=== PATIENT | male | born 1935 | race Caucasian/White ===

== ENCOUNTER 2016-09-17 10:36 | Inpatient (IN) | payer MEDICARE, BC ==
--- NOTE | 2016-09-17 11:04 | ED ---
SOB HPI - General Chief Complaint: Shortness of Breath Stated Complaint: Altered Mental Status Time Seen by Provider: 09/17/16 10:36 Source: EMS, RN notes reviewed, old records reviewed Mode of arrival: EMS Limitations: altered mental status - History of Present Illness Initial Comments: This is a 80-year-old male with a history of multiple medical problems including COPD who is brought in for evaluation for hypoxemia and altered mental status. The patient was brought in by EMS apparently had a pulse ox of 58% yesterday 80% this morning per EMS she did improve after a updraft treatment. He has diminished mental status. 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 No nausea no vomiting no diarrhea reported. No reports of fevers chills or sweats he patient is unable to render any information per EMS his CODE STATUS is supportive care only family did request evaluation in the emergency department MD Complaint: shortness of breath - Related Data Home Medications Medication Instructions Recorded Confirmed Atorvastatin [Lipitor] 40 mg PO HS 09/13/14 09/17/16 Insulin NPH Hum/Reg Insulin Hm 25 unit SQ AC-BRKFST 09/13/14 09/17/16 [NovoLIN 70-30 100 UNIT/ML VIAL] Budesonide [Pulmicort] 0.5 mg INHALATION RT-BID 07/28/15 09/17/16 Vitamin B Complex 1 cap PO DAILY 07/28/15 09/17/16 amLODIPine BESYLATE [Norvasc] 5 mg PO DAILY 07/28/15 09/17/16 Albuterol Inhaler [Ventolin Hfa 2 puff INHALATION RT-Q6H PRN 09/01/16 09/17/16 Inhaler] Aspirin EC [Ecotrin Low Dose] 81 mg PO DAILY 09/01/16 09/17/16 Omeprazole [PriLOSEC] 40 mg PO DAILY 09/01/16 09/17/16 Metoprolol Succinate [Toprol XL] 50 mg PO DAILY 09/02/16 09/17/16 INSULIN LISPRO (humaLOG) [humaLOG 2 unit SQ ACHS 09/17/16 09/17/16 (formulary)] Prostat Awc 1 tab PO BID 09/17/16 09/17/16 Tuberculin Ppd (Skin Test) 0.1 ml SQ Q7D 09/17/16 09/17/16 [Tubersol] guaiFENesin [Mucinex] 600 mg PO BID 09/17/16 09/17/16 Previous Rx's Medication Instructions Recorded Insulin NPH Hum/Reg Insulin Hm 10 units SQ HS #0 09/07/16 [NovoLIN 70-30 100 UNIT/ML VIAL] Ipratropium-Albuterol Nebulize 3 ml INHALATION RT-Q4H PRN #0 09/07/16 [Duoneb 0.5 mg-3 mg/3 ml Soln] ampul.neb Linezolid 600 mg PO BID #28 tablet 09/07/16 predniSONE 40 mg PO DAILY 5 Days 09/07/16 Allergies Allergy/AdvReac Type Severity Reaction Status Date / Time No Known Allergies Allergy Verified 09/17/16 12:07 Review of Systems ROS Statement: Those systems with pertinent positive or pertinent negative responses have been documented in the HPI. ROS Other: All systems not noted in ROS Statement are negative. Limitations: ROS unobtainable due to patients medical condition Past Medical History Past Medical History: Coronary Artery Disease (CAD), Heart Failure, COPD, Diabetes Mellitus, GERD/Reflux, Hyperlipidemia, Hypertension, Pneumonia, Sleep Apnea/CPAP/BIPAP Additional Past Medical History / Comment(s): MACULAR DEGENERATION rt eye legally blind , ARTHRITIS HANDS, DOES'NT USE THE CPAP ANYMORE, c-diff 12-02-14 History of Any Multi-Drug Resistant Organisms: ESBL, MRSA Date of last positivie culture/infection: 09/02/16 MDRO Source:: RT KNEE Past Surgical History: Appendectomy, Orthopedic Surgery, Tonsillectomy Additional Past Surgical History / Comment(s): 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 has 1 indoor cat. pt is able to care for self.has a prothesis(rt leg) and a w/ c.pt's grand daughter lives close by and checks on him often. Smoking Status: Former smoker Past Alcohol Use History: None Reported Additional Past Alcohol Use History / Comment(s): STARTED SMOKING AT AGE 18 QUIT IN 1985 HAD SMOKED 2 PPD Past Drug Use History: None Reported - Past Family History Father Family Medical History: Myocardial Infarction ([place]) Additional Family Medical History / Comment(s): WAS ALCOHOLIC AT AGE 54 FROM CEREBRAL HEMMORAGE Mother Family Medical History: Cancer Additional Family Medical History / Comment(s): AT AGE 77 FROM BLADDER CANCER. General Exam - General Exam Comments Initial Comments: Is a well-developed well-nourished obtunded male Limitations: altered mental status General appearance: obtunded Eye exam: Present: PERRL, EOMI ENT exam: Present: mucous membranes dry Neck exam: Present: normal inspection. Absent: tenderness, meningismus, lymphadenopathy Respiratory exam: Present: decreased breath sounds Cardiovascular Exam: Present: regular rate, normal rhythm, normal heart sounds. Absent: systolic murmur, diastolic murmur, rubs, gallop, clicks GI/Abdominal exam: Present: soft, distended. Absent: tenderness, pulsatile mass , hernia Rectal exam: Present: deferred Extremities exam: Present: normal capillary refill, other (Left below the knee amputation and right [id number] amputation) Neurological exam: Present: altered Psychiatric exam: Present: other (Unable to evaluate) Skin exam: Present: dry, other (Slightly cool to touch) Course Vital Signs 09/17/16 09/17/16 09/17/16 10:45 11:04 11:08 Temperature 96.3 F L Pulse Rate 88 85 84 Respiratory 26 H 24 26 H Rate Blood Pressure 107/49 152/65 O2 Sat by Pulse 71 L 93 L 92 L Oximetry 09/17/16 09/17/16 09/17/16 12:08 12:38 13:15 Temperature Pulse Rate 80 80 81 Respiratory 28 H 30 H 26 H Rate Blood Pressure 110/55 119/53 134/62 O2 Sat by Pulse 89 L 91 L 90 L Oximetry 09/17/16 09/17/16 09/17/16 14:00 15:10 15:42 Temperature Pulse Rate 82 84 84 Respiratory 28 H 24 26 H Rate Blood Pressure 166/72 144/65 142/66 O2 Sat by Pulse 93 L 93 L 94 L Oximetry - Reevaluation(s) Reevaluation #1: 09/17/16 15:53 Initial reevaluation shows some improvement after the initial treatment that was rendered. Reevaluation #2: 09/17/16 15:53 Patient was removing his BiPAP and mask. He did receive some Ativan. Medical Decision Making - Medical Decision Making I did discuss findings with the patient's attending physician the patient will be admitted with consultation by cardiology and pulmonary medicine. Patient has improved. - Lab Data Result diagrams: 09/17/16 10:44 09/17/16 10:44 Lab Results 09/17/16 09/17/16 09/17/16 Range/Units 10:44 10:44 10:44 WBC 10.9 H (3.8-10.6) k/uL RBC 4.05 L (4.30-5.90) m/uL Hgb 11.9 L (13.0-17.5) gm/dL Hct 40.3 (39.0-53.0) % MCV 99.3 (80.0-100.0) fL MCH 29.4 (25.0-35.0) pg MCHC 29.6 L (31.0-37.0) g/dL RDW 16.1 H (11.5-15.5) % Plt Count 124 L D (150-450) k/uL Neutrophils % 86 % Lymphocytes % 6 % Monocytes % 5 % Eosinophils % 1 % Basophils % 0 % Neutrophils # 9.4 H (1.3-7.7) k/uL Lymphocytes # 0.7 L (1.0-4.8) k/uL Monocytes # 0.6 (0-1.0) k/uL Eosinophils # 0.1 (0-0.7) k/uL Basophils # 0.0 (0-0.2) k/uL Hypochromasia Marked Anisocytosis Slight Macrocytosis Slight PT (9.0-12.0) sec INR (<1.1) APTT (22.0-30.0) sec Sodium 144 (137-145) mmol/L Potassium 5.1 (3.5-5.1) mmol/L Chloride 100 (98-107) mmol/L Carbon Dioxide 36 H (22-30) mmol/L Anion Gap 8 mmol/L BUN 21 H (9-20) mg/dL Creatinine 1.00 (0.66-1.25) mg/dL Est GFR (MDRD) Af Amer >60 (>60 ml/min/1.73 sqM) Est GFR (MDRD) Non-Af >60 (>60 ml/min/1.73 sqM) Glucose 147 H (74-99) mg/dL Calcium 8.4 (8.4-10.2) mg/dL Magnesium 1.9 (1.6-2.3) mg/dL Total Bilirubin 0.7 (0.2-1.3) mg/dL AST 22 (17-59) U/L ALT 41 (21-72) U/L Alkaline Phosphatase 79 (38-126) U/L Total Creatine Kinase 31 L (55-170) U/L CK-MB (CK-2) 1.4 (0.0-2.4) ng/mL CK-MB (CK-2) Rel Index 4.5 Troponin I 0.048 H* (0.000-0.034) ng/mL NT-Pro-B Natriuret Pep pg/mL Total Protein 5.7 L (6.3-8.2) g/dL Albumin 3.0 L (3.5-5.0) g/dL 09/17/16 09/17/16 Range/Units 10:44 10:44 WBC (3.8-10.6) k/uL RBC (4.30-5.90) m/uL Hgb (13.0-17.5) gm/dL Hct (39.0-53.0) % MCV (80.0-100.0) fL MCH (25.0-35.0) pg MCHC (31.0-37.0) g/dL RDW (11.5-15.5) % Plt Count (150-450) k/uL Neutrophils % % Lymphocytes % % Monocytes % % Eosinophils % % Basophils % % Neutrophils # (1.3-7.7) k/uL Lymphocytes # (1.0-4.8) k/uL Monocytes # (0-1.0) k/uL Eosinophils # (0-0.7) k/uL Basophils # (0-0.2) k/uL Hypochromasia Anisocytosis Macrocytosis PT 10.7 (9.0-12.0) sec INR 1.1 (<1.1) APTT 23.0 (22.0-30.0) sec Sodium (137-145) mmol/L Potassium (3.5-5.1) mmol/L Chloride (98-107) mmol/L Carbon Dioxide (22-30) mmol/L Anion Gap mmol/L BUN (9-20) mg/dL Creatinine (0.66-1.25) mg/dL Est GFR (MDRD) Af Amer (>60 ml/min/1.73 sqM) Est GFR (MDRD) Non-Af (>60 ml/min/1.73 sqM) Glucose (74-99) mg/dL Calcium (8.4-10.2) mg/dL Magnesium (1.6-2.3) mg/dL Total Bilirubin (0.2-1.3) mg/dL AST (17-59) U/L ALT (21-72) U/L Alkaline Phosphatase (38-126) U/L Total Creatine Kinase (55-170) U/L CK-MB (CK-2) (0.0-2.4) ng/mL CK-MB (CK-2) Rel Index Troponin I (0.000-0.034) ng/mL NT-Pro-B Natriuret Pep 3250 pg/mL Total Protein (6.3-8.2) g/dL Albumin (3.5-5.0) g/dL - EKG Data -: EKG Interpreted by Me (Sinus rhythm with first-degree AV block rate was 84. Interval to 24 QRS du) - Radiology Data Radiology results: report reviewed (I did review the x-ray report is evidence of CHF. Also bilateral infiltrates), image reviewed Critical Care Time Critical Care Time: Yes Critical Care Time: 39 minutes of critical care time which included initial ambulance monitoring and discussed with paramedics review of old charting history physical exam lab and x-ray orders reevaluation patient several occasions. Monitoring the patient for response to therapy reevaluation of the labs and x-rays discussion with the admitting physician admitting orders and documentation of the above. Disposition Clinical Impression: Congestive heart failure, Adult respiratory distress syndrome, Acute exacerbation of chronic obstructive airways disease, Pneumonia Disposition: ADMITTED IP TO THIS [facility] Condition: Stable
[2016-09-17 11:25] LABS: INR 1.1 (<1.1); Prothrombin Time 10.7 sec (9.0-12.0)
--- NOTE | 2016-09-17 11:26 | XR ---
EXAMINATION TYPE: XR chest 1V portable DATE OF EXAM: 09/17/2016 11:22 AM COMPARISON: 09/01/2016 HISTORY: Difficulty breathing FINDINGS: There are bilateral pleural effusions with cardiomegaly and bibasilar infiltrate. There is a diffuse interstitial pattern. IMPRESSION: 1. Bilateral infiltrate and pleural effusion correlate for CHF. Findings are mildly progressed.
[2016-09-17 11:27] LABS: ALT 41 U/L (21-72); AST 22 U/L (17-59); Alkaline Phosphatase 79 U/L (38-126); Anion Gap 8 mmol/L; Anisocytosis Slight; Basophils % (A) 0 %; Blood Urea Nitrogen 21 mg/dL (9-20); CH 29.4; CHCM 29.7; Calcium 8.4 mg/dL (8.4-10.2); Carbon Dioxide 36 mmol/L (22-30); Chloride 100 mmol/L (98-107); Eosinophils # (A) 0.1 k/uL (0-0.7); Eosinophils % (A) 1 %; Glucose 147 mg/dL (74-99); HCT 40.3 % (39.0-53.0); HDW 2.94; HGB 11.9 gm/dL (13.0-17.5); Hypochromasia Marked; Luc # (Auto) 0.15; Luc % (Auto) 1; Lymphocytes # (A) 0.7 k/uL (1.0-4.8); Lymphocytes % (A) 6 %; MCH 29.4 pg (25.0-35.0); MCHC 29.6 g/dL (31.0-37.0); MCV 99.3 fL (80.0-100.0); Macrocytosis Slight; Magnesium 1.9 mg/dL (1.6-2.3); Mean Platelet Volume 7.4; Monocytes # (A) 0.6 k/uL (0-1.0); Monocytes % (A) 5 %; Neutrophils # (A) 9.4 k/uL (1.3-7.7); Neutrophils % (A) 86 %; Non-African American GFR(MDRD) >60 (>60 ml/min/1.73 sqM); Potassium 5.1 mmol/L (3.5-5.1); RBC 4.05 m/uL (4.30-5.90); RDW 16.1 % (11.5-15.5); Sodium 144 mmol/L (137-145); Total Bilirubin 0.7 mg/dL (0.2-1.3); Total Protein 5.7 g/dL (6.3-8.2); WBC 10.9 k/uL (3.8-10.6); WBC (Perox) 11.22
[2016-09-17 11:51] LABS: Creatine Kinase MB 1.4 ng/mL (0.0-2.4)
[2016-09-17 11:58] LABS: Troponin I 0.048 ng/mL (0.000-0.034)
[2016-09-17] MEDS ORDERED: NITROGLYCERIN OINT 1 INCH/GM PACKET TOPICAL STA (13:16)
[2016-09-17] MEDS ORDERED: FUROSEMIDE 10 MG/ML 4 ML VIAL IV STA (13:16)
[2016-09-17] MEDS ORDERED: LORazepam 2 MG/ML SYRINGE IV STA (13:16)
[2016-09-17] MEDS ORDERED: LEVOFLOXACIN 750MG-D5W PMX 750 MG in DEXTROSE/WATER 1 150ML.BAG IVPB STA (16:01)
[2016-09-17] MEDS: IPRATROPIUM-ALBUTEROL 3 ML NEB INHALATION SCH ×2 (19:00→19:19)
[2016-09-17] MEDS: NITROGLYCERIN OINT 1 INCH/GM PACKET TOPICAL SCH (20:26)
[2016-09-17] MEDS: INSULIN LISPRO (humaLOG) 300 UNIT/3 ML VIAL SQ SCH (20:26)
[2016-09-17] MEDS ORDERED: IPRATROPIUM-ALBUTEROL 3 ML NEB INHALATION PRN ×2 (21:43→21:49)
[2016-09-17 22:35] LABS: Hemoglobin A1C 8.1 % (4.2-6.1)
[2016-09-18] MEDS: INSULIN LISPRO (humaLOG) 300 UNIT/3 ML VIAL SQ SCH ×4 (00:15→17:42)
[2016-09-18] MEDS: NITROGLYCERIN OINT 1 INCH/GM PACKET TOPICAL SCH ×4 (00:16→15:29)
[2016-09-18] MEDS: SODIUM CHLORIDE 0.9% 1,000 ML IV SCH ×2 (00:16→15:29)
[2016-09-18] MEDS: FUROSEMIDE 10 MG/ML 4 ML VIAL IV SCH ×2 (00:16→09:10)
[2016-09-18 00:17] LABS: Glucose,Whole Blood 97 mg/dL (75-99)
[2016-09-18] MEDS: LORazepam 2 MG/ML SYRINGE IV PRN ×2 (01:22→06:41)
[2016-09-18 02:25] VITALS: BMI 34.2
[2016-09-18 06:26] LABS: Glucose,Whole Blood 116 mg/dL (75-99)
[2016-09-18] MEDS: IPRATROPIUM-ALBUTEROL 3 ML NEB INHALATION SCH ×3 (08:41→16:06)
--- NOTE | 2016-09-18 10:14 | P.CRDCN ---
History of Present Illness Consult date: 09/18/16 History of present illness: This is a pleasant 80-year-old gentleman with a past medical history significant for CAD, CHF, diabetes, hypertension, and dyslipidemia was brought from an extended care facility to the hospital because of change in mental status. Currently the patient is non-verbal and he is difficult to arouse. I could not get any details or history from the patient. We get involved in the care of the patient because his cardiac enzymes were checked and came in to be slightly abnormal. At this point, I cannot tell if the patient had any chest pain or chest discomfort. Beside that the chest x-ray was consistent with congestive heart failure. The patient had bilateral [id number] amputation in the past. The cardiac enzymes were checked and came in to be also slightly abnormal. 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 Able to feed self Smoking Status: Former smoker Past Alcohol Use History: None Reported Additional Past Alcohol Use History / Comment(s): STARTED SMOKING AT AGE 18 QUIT IN 1985 HAD SMOKED 2 PPD Past Drug Use History: None Reported - Past Family History Father Family Medical History: Myocardial Infarction ([place]) Additional Family Medical History / Comment(s): WAS ALCOHOLIC AT AGE 54 FROM CEREBRAL HEMMORAGE Mother Family Medical History: Cancer Additional Family Medical History / Comment(s): AT AGE 77 FROM BLADDER CANCER. Medications and Allergies Home Medications Medication Instructions Recorded Confirmed Type Atorvastatin [Lipitor] 40 mg PO HS 09/13/14 09/17/16 History Insulin NPH Hum/Reg Insulin Hm 25 unit SQ AC-BRKFST 09/13/14 09/17/16 History [NovoLIN 70-30 100 UNIT/ML VIAL] Budesonide [Pulmicort] 0.5 mg INHALATION RT-BID 07/28/15 09/17/16 History Vitamin B Complex 1 cap PO DAILY 07/28/15 09/17/16 History amLODIPine BESYLATE [Norvasc] 5 mg PO DAILY 07/28/15 09/17/16 History Albuterol Inhaler [Ventolin Hfa 2 puff INHALATION RT-Q6H PRN 09/01/16 09/17/16 History Inhaler] Aspirin EC [Ecotrin Low Dose] 81 mg PO DAILY 09/01/16 09/17/16 History Omeprazole [PriLOSEC] 40 mg PO DAILY 09/01/16 09/17/16 History Metoprolol Succinate [Toprol XL] 50 mg PO DAILY 09/02/16 09/17/16 History INSULIN LISPRO (humaLOG) [humaLOG 2 unit SQ ACHS 09/17/16 09/17/16 History (formulary)] Prostat Awc 1 tab PO BID 09/17/16 09/17/16 History Tuberculin Ppd (Skin Test) 0.1 ml SQ Q7D 09/17/16 09/17/16 History [Tubersol] guaiFENesin [Mucinex] 600 mg PO BID 09/17/16 09/17/16 History Allergies Allergy/AdvReac Type Severity Reaction Status Date / Time No Known Allergies Allergy Verified 09/17/16 12:07 Physical Exam Vitals: Vital Signs Temp Pulse Pulse Resp BP BP Pulse Ox 09/18/16 08:51 92 09/18/16 08:41 92 09/18/16 08:31 97.1 F L 98 26 H 170/69 91 L 09/18/16 03:00 97.9 F 90 27 H 149/64 93 L 09/18/16 01:00 94 27 H 145/64 84 L 09/17/16 21:00 98.0 F 83 23 117/58 96 09/17/16 19:36 82 09/17/16 19:20 82 09/17/16 18:14 97.4 F L 79 28 H 126/61 91 L 01/06/17 17:39 78 16 133/62 92 L Intake and Output 09/17/16 09/18/16 09/18/16 22:59 06:59 14:59 Output Total 650 Balance -650 Output: Urine 650 Other: Voiding Method Indwelling Catheter Weight 102.058 kg - Constitutional General appearance: mild distress - Respiratory Respiratory: bilateral: diminished - Cardiovascular Rhythm: regular Results 09/17/16 10:44 09/17/16 10:44 Cardiac Enzymes 09/17/16 09/18/16 Range/Units 19:14 02:37 Troponin I 0.047 H* 0.045 H* (0.000-0.034) ng/mL Current Medications Generic Name Dose Route Start Last Admin Trade Name Freq PRN Reason Stop Dose Admin Albuterol/Ipratropium 3 ml 09/18/16 08:00 09/18/16 08:41 Duoneb 0.5 Mg-3 Mg/3 Ml Soln INHALATION 3 ml RT-QID ASA Administration Albuterol/Ipratropium 3 ml 09/17/16 21:49 Duoneb 0.5 Mg-3 Mg/3 Ml Soln INHALATION RT-QID PRN Shortness Of Breath Or Wheezing Aspirin 325 mg 09/19/16 09:00 Aspirin PO DAILY ASA Atorvastatin Calcium 80 mg 09/18/16 21:00 Lipitor PO HS ASA Furosemide 40 mg 09/17/16 21:00 09/18/16 09:10 Lasix IV 40 mg Q12HR ASA Administration Sodium Chloride 1,000 mls @ 20 mls/hr 09/17/16 16:00 09/18/16 00:16 Saline 0.9% IV 20 mls/hr .Q24H ASA Administration Insulin Human Lispro 0 unit 09/17/16 17:30 09/18/16 06:19 Humalog SQ Not Given ACHS ASA Protocol Lorazepam 0.5 mg 09/17/16 19:58 09/18/16 06:41 Ativan IV 0.5 mg Q6HR PRN Administration Anxiety Nitroglycerin 1 inch 09/17/16 18:00 09/18/16 09:09 Nitro-Bid Oint TOPICAL Not Given QID ASA Intake and Output 09/17/16 09/18/16 09/18/16 22:59 06:59 14:59 Output Total 650 Balance -650 Output: Urine 650 Other: Voiding Method Indwelling Catheter Weight 102.058 kg Assessment and Plan Plan: Assessment #1 change in mental status #2 mildly abnormal cardiac enzymes #3 mild congestive heart failure with unknown details about the left ventricular systolic function #4 COPD #5 multiple comorbid conditions Plan #1 add aspirin and statin to the current medical treatment #2 obtain an echocardiogram with Doppler #3 the patient is not a candidate for any invasive workup #4 we'll continue following up with him
[2016-09-18] MEDS: hydrALAZINE HCL 20 MG/ML 1 ML VIAL IVP PRN ×2 (11:16→15:32)
[2016-09-18 11:25] LABS: Glucose,Whole Blood 162 mg/dL (75-99)
[2016-09-18 11:56] LABS: ABG Base Excess 11.2 mmol/L; ABG HCO3 39 mmol/L (21-25); ABG PCO2 100 mmHg (35-45); ABG PH 7.22 (7.35-7.45); ABG PO2 92 mmHg (83-108); ABG TCO2 42 mmol/L (19-24)
--- NOTE | 2016-09-18 12:05 | P.CNPUL ---
History of Present Illness Consult date: 09/18/16 Reason for consult: dyspnea, other Chief complaint: Shortness of breath History of present illness: This is an 80-year-old gentleman who was apparently admitted through the emergency room on 09/17/2016. This patient apparently has a history of underlying COPD and also has a history of hyperlipidemia diabetes hypertension GERD CAD heart failure sleep apnea syndrome. The patient is doing poorly. The patient's currently on BiPAP upon the sixth floor. The patient's poorly responsive her unresponsive. A blood gas was just done. I was asked to see the patient for respiratory failure. I cannot get any additional history from the patient. Ex Apparently according to the ER victor hugo, the patient was found have a pulse ox of only 58%. Apparently did improve somewhat after a breathing treatment. For that reason apparently the patient was brought to the emergency room. 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 Able to feed self Smoking Status: Former smoker Past Alcohol Use History: None Reported Additional Past Alcohol Use History / Comment(s): STARTED SMOKING AT AGE 18 QUIT IN 1985 HAD SMOKED 2 PPD Past Drug Use History: None Reported - Past Family History Father Family Medical History: Myocardial Infarction ([place]) Additional Family Medical History / Comment(s): WAS ALCOHOLIC AT AGE 54 FROM CEREBRAL HEMMORAGE Mother Family Medical History: Cancer Additional Family Medical History / Comment(s): AT AGE 77 FROM BLADDER CANCER. Medications and Allergies Home Medications Medication Instructions Recorded Confirmed Type Atorvastatin [Lipitor] 40 mg PO HS 09/13/14 09/17/16 History Insulin NPH Hum/Reg Insulin Hm 25 unit SQ AC-BRKFST 09/13/14 09/17/16 History [NovoLIN 70-30 100 UNIT/ML VIAL] Budesonide [Pulmicort] 0.5 mg INHALATION RT-BID 07/28/15 09/17/16 History Vitamin B Complex 1 cap PO DAILY 07/28/15 09/17/16 History amLODIPine BESYLATE [Norvasc] 5 mg PO DAILY 07/28/15 09/17/16 History Albuterol Inhaler [Ventolin Hfa 2 puff INHALATION RT-Q6H PRN 09/01/16 09/17/16 History Inhaler] Aspirin EC [Ecotrin Low Dose] 81 mg PO DAILY 09/01/16 09/17/16 History Omeprazole [PriLOSEC] 40 mg PO DAILY 09/01/16 09/17/16 History Metoprolol Succinate [Toprol XL] 50 mg PO DAILY 09/02/16 09/17/16 History INSULIN LISPRO (humaLOG) [humaLOG 2 unit SQ ACHS 09/17/16 09/17/16 History (formulary)] Prostat Awc 1 tab PO BID 09/17/16 09/17/16 History Tuberculin Ppd (Skin Test) 0.1 ml SQ Q7D 09/17/16 09/17/16 History [Tubersol] guaiFENesin [Mucinex] 600 mg PO BID 09/17/16 09/17/16 History Allergies Allergy/AdvReac Type Severity Reaction Status Date / Time No Known Allergies Allergy Verified 09/17/16 12:07 Physical Exam Osteopathic Statement: *. No significant issues noted on an osteopathic structural exam other than those noted in the History and Physical/Consult. Vitals: Vital Signs Temp Pulse Pulse Resp BP BP Pulse Ox 09/18/16 11:59 96 09/18/16 11:13 97.2 F L 92 26 H 162/74 97 09/18/16 08:51 92 09/18/16 08:41 92 09/18/16 08:31 97.1 F L 98 26 H 170/69 91 L 09/18/16 08:00 98 26 H 09/18/16 03:00 97.9 F 90 27 H 149/64 93 L 09/18/16 01:00 94 27 H 145/64 84 L 09/17/16 21:00 98.0 F 83 23 117/58 96 09/17/16 19:36 82 09/17/16 19:20 82 09/17/16 18:14 97.4 F L 79 28 H 126/61 91 L 09/17/16 17:39 78 16 133/62 92 L Intake and Output 09/17/16 09/18/16 09/18/16 22:59 06:59 14:59 Output Total 650 Balance -650 Output: Urine 650 Other: Voiding Method Indwelling Catheter Indwelling Catheter Weight 102.058 kg The patient is quite tachypnea. Patient is not very alert very lethargic and somnolent. No additional history can be obtained from the patient. HEENT examination is grossly unremarkable. BiPAP mask in place. Neck supple. Neck veins are not distended. Cardiovascular examination reveals distant heart sounds. No distinct murmurs noted. Lung examination reveals coarse rhonchi and crackles. Breath sounds diminished. Abdomen soft bowel sounds are heard. Extremities are intact. Results - Laboratory Findings CBC and BMP: 09/17/16 10:44 09/17/16 10:44 ABG ABG pH 7.22 (7.35-7.45) L 09/18/16 11:42 ABG pCO2 100 mmHg (35-45) H* 09/18/16 11:42 ABG pO2 92 mmHg (83-108) 09/18/16 11:42 ABG O2 Saturation 94.0 % (94-97) 09/18/16 11:42 PT/INR, D-dimer PT 10.7 sec (9.0-12.0) 09/17/16 10:44 INR 1.1 (<1.1) 09/17/16 10:44 Abnormal lab findings: Abnormal Labs 09/17/16 09/18/16 09/18/16 19:14 02:37 06:19 ABG pH ABG pCO2 ABG HCO3 ABG Total CO2 POC Glucose (mg/dL) 116 H Troponin I 0.047 H* 0.045 H* 09/18/16 09/18/16 11:24 11:42 ABG pH 7.22 L ABG pCO2 100 H* ABG HCO3 39 H ABG Total CO2 42 H POC Glucose (mg/dL) 162 H Troponin I Assessment and Plan (1) Congestive heart failure Status: Acute (2) Pneumonia Status: Acute (3) COPD exacerbation Status: Acute (4) IDDM (insulin dependent diabetes mellitus) Status: Acute (5) Shortness of breath Status: Acute Plan: Plan dated 09/18/2016 The patient's overall prognosis is very poor. I think the patient should be made hospice care. This recommendation suggestions are forthcoming. I don't think the patient stable enough to go down the CAT scan. I will review the medications and make appropriate adjustments. Time with Patient: Greater than 30
[2016-09-18] MEDS ORDERED: ACETAMINOPHEN TAB 325 MG TAB PO PRN (13:33)
[2016-09-18] MEDS ORDERED: ONDANSETRON 4 MG/2 ML VIAL IVP PRN (13:33)
[2016-09-18] MEDS ORDERED: Magnesium Replacement Protocol 1 EACH MISC MISCELLANE PRN (13:33)
[2016-09-18] MEDS ORDERED: Potassium Replacement Protocol 1 EACH MISC MISCELLANE PRN (13:33)
--- NOTE | 2016-09-18 13:43 | P.HPIM ---
History of Present Illness H&P Date: 09/18/16 Chief Complaint: Shortness of breath This is a 80-year-old gentleman with complex past medical history noted below who [facility] the [facility] with hypoxia and worsening shortness of breath. Patient is currently obtunded and is only arousable to sternal rub. He is unable to provide any medical history. He is on BiPAP. Most of the history was obtained by chart review and nursing staff report. Patient was recently discharged on the [facility] and yesterday was found to be more short of breath and hypoxic with a reported O2 sat duration of 58% on high flow nasal cannula. Patient was transferred to the emergency room and was evaluated and treated with IV steroids, bronchodilator, and IV Lasix. Upon my evaluation today, I noted the patient was completely obtunded. I requested a stat blood gas and patient was found to be in acute hypercapnic respiratory failure with PaCO2 of 100. He is maintained on BiPAP. He is a DO NOT RESUSCITATE/DO NOT INTUBATE patient. Pulmonology and cardiology have seen the patient already. 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 Able to feed self Smoking Status: Former smoker Past Alcohol Use History: None Reported Additional Past Alcohol Use History / Comment(s): STARTED SMOKING AT AGE 18 QUIT IN 1985 HAD SMOKED 2 PPD Past Drug Use History: None Reported - Past Family History Father Family Medical History: Myocardial Infarction ([place]) Additional Family Medical History / Comment(s): WAS ALCOHOLIC AT AGE 54 FROM CEREBRAL HEMMORAGE Mother Family Medical History: Cancer Additional Family Medical History / Comment(s): AT AGE 77 FROM BLADDER CANCER. Medications and Allergies Home Medications Medication Instructions Recorded Confirmed Type RX: Atorvastatin [Lipitor] 40 mg PO HS 09/13/14 09/17/16 History RX: Insulin NPH Hum/Reg Insulin Hm 25 unit SQ AC-BRKFST 09/13/14 09/17/16 History [NovoLIN 70-30 100 UNIT/ML VIAL] RX: Budesonide [Pulmicort] 0.5 mg INHALATION RT-BID 07/28/15 09/17/16 History RX: Vitamin B Complex 1 cap PO DAILY 07/28/15 09/17/16 History RX: amLODIPine BESYLATE [Norvasc] 5 mg PO DAILY 07/28/15 09/17/16 History RX: Albuterol Inhaler [Ventolin 2 puff INHALATION RT-Q6H PRN 09/01/16 09/17/16 History Hfa Inhaler] RX: Aspirin EC [Ecotrin Low Dose] 81 mg PO DAILY 09/01/16 09/17/16 History RX: Omeprazole [PriLOSEC] 40 mg PO DAILY 09/01/16 09/17/16 History RX: Metoprolol Succinate [Toprol 50 mg PO DAILY 09/02/16 09/17/16 History XL] Prostat Awc 1 tab PO BID 09/17/16 09/17/16 History RX: INSULIN LISPRO (humaLOG) 2 unit SQ ACHS 09/17/16 09/17/16 History [humaLOG (formulary)] Tuberculin Ppd (Skin Test) 0.1 ml SQ Q7D 09/17/16 09/17/16 History [Tubersol] guaiFENesin [Mucinex] 600 mg PO BID 09/17/16 09/17/16 History Allergies Allergy/AdvReac Type Severity Reaction Status Date / Time No Known Allergies Allergy Verified 09/17/16 12:07 Physical Exam Vitals: Vital Signs Temp Pulse Pulse Resp BP BP Pulse Ox 09/18/16 12:20 96 09/18/16 12:00 92 26 H 09/18/16 11:59 96 09/18/16 11:13 97.2 F L 92 26 H 162/74 97 09/18/16 08:51 92 09/18/16 08:41 92 09/18/16 08:31 97.1 F L 98 26 H 170/69 91 L 09/18/16 08:00 98 26 H 09/18/16 03:00 97.9 F 90 27 H 149/64 93 L 09/18/16 01:00 94 27 H 145/64 84 L 09/17/16 21:00 98.0 F 83 23 117/58 96 09/17/16 19:36 82 09/17/16 19:20 82 09/17/16 18:14 97.4 F L 79 28 H 126/61 91 L 09/17/16 17:39 78 16 133/62 92 L Intake and Output 09/17/16 09/18/16 09/18/16 22:59 06:59 14:59 Output Total 650 Balance -650 Output: Urine 650 Other: Voiding Method Indwelling Catheter Indwelling Catheter Weight 102.058 kg General: The patient is very lethargic but arousable to sternal rub Eye: there is normal conjunctiva bilaterally. . Neck: The neck is supple, there is no JVD. Cardiovascular: Normal S1-S2, no S3-S4, no murmurs. Respiratory: Lungs with end-expiratory wheezing Gastrointestinal: Abdomen is soft, nontender, Musculoskeletal: There is bilateral below the knee amputation Skin: Skin is warm and dry Results CBC & Chem 7: 09/17/16 10:44 09/17/16 10:44 Labs: Abnormal Lab Results - Last 24 Hours (Table) 09/17/16 09/18/16 09/18/16 Range/Units 19:14 02:37 06:19 ABG pH (7.35-7.45) ABG pCO2 (35-45) mmHg ABG HCO3 (21-25) mmol/L ABG Total CO2 (19-24) mmol/L POC Glucose (mg/dL) 116 H (75-99) mg/dL Troponin I 0.047 H* 0.045 H* (0.000-0.034) ng/mL 09/18/16 09/18/16 Range/Units 11:24 11:42 ABG pH 7.22 L (7.35-7.45) ABG pCO2 100 H* (35-45) mmHg ABG HCO3 39 H (21-25) mmol/L ABG Total CO2 42 H (19-24) mmol/L POC Glucose (mg/dL) 162 H (75-99) mg/dL Troponin I (0.000-0.034) ng/mL Thrombosis Risk Factor Assmnt - Choose All That Apply Any of the Below Risk Factors Present?: Yes Each Factor Represents 1 point: Obesity (BMI >25) Other Risk Factors: Yes Each Risk Factor Represents 3 Points: Age 75 years or older Thrombosis Risk Factor Assessment Total Risk Factor Score: 4 Thrombosis Risk Factor Assessment Level: Moderate Risk Assessment and Plan Plan: 1. Acute hypoxic and hypercapnic respiratory failure 2. Acute COPD exacerbation 3. Possible acute heart failure exacerbation awaiting echocardiogram report 4. Right lower extremity pressure ulcer with culture growing presumptive MRSA currently finishing oral course of antibiotic with linezolid 5. Bilateral lower extremity amputation 6. Severe peripheral vascular occlusive disease 7. Chronic kidney disease stage IIIa 8. Essential hypertension 9. Mixed hyperlipidemia Patient is currently maintained on BiPAP. We will continue bronchodilators, IV steroids, inhaled steroids, and IV Lasix. Patient was seen and evaluated by cardiology and pulmonology, appreciate recommendations. Continue supportive care. Repeat blood gas within the next 3-4 hours. Patient is DNR/DNI. His prognosis is very guarded. No family members available at bedside. His caregiver was updated about his current critical condition over the phone by nursing staff.
[2016-09-18] MEDS ORDERED: guaiFENesin 600 MG TABLET.ER PO SCH (14:00)
[2016-09-18] MEDS ORDERED: LINEZOLID 600 MG TAB PO SCH (14:00)
--- NOTE | 2016-09-18 15:13 | ECHOF ---
Referral Reason:chf, sob MEASUREMENTS -------- HEIGHT: 172.7 cm WEIGHT: 101.6 kg BP: IVSd: 1.2 cm (0.6 - 1.1) LVIDd: 3.2 cm (3.9 - 5.3) LVPWd: 0.9 cm (0.6 - 1.1) IVSs: 1.2 cm LVIDs: 2.1 cm LVPWs: 1.5 cm Ao Diam: 3.5 cm (2.0 - 3.7) AV Cusp: 1.6 cm (1.5 - 2.6) LA Diam: 4.2 cm (2.7 - 3.8) MV EXCURSION: 13.601 mm (> 18.000) MV EF SLOPE: 47 mm/s (70 - 150) EPSS: 0.8 cm MV E Mina: 0.53 m/s MV DecT: 252 ms MV A Mina: 1.09 m/s MV E/A Ratio: 0.49 RAP: 5.00 mmHg FINDINGS -------- Undetermined rhythm. This was a technically adequate study. There is mild concentric left ventricular hypertrophy. Overall left ventricular systolic function is low-normal with, an EF between 50 - 55 %. The right ventricle is normal in size. The left atrial size is normal. The right atrial size is normal. There is mild aortic valve sclerosis. There is no evidence of aortic regurgitation. Mild mitral annular calcification present. Mild mitral regurgitation is present. Mild tricuspid regurgitation present. There is no evidence of pulmonary hypertension. The right ventricular systolic pressure, as measured by Doppler, is {RVSP}. There is no pulmonic regurgitation present. The aortic root size is normal. There is no pericardial effusion. CONCLUSIONS -------- 1. There is mild concentric left ventricular hypertrophy. 2. Overall left ventricular systolic function is low-normal with, an EF between 50 - 55 %. 3. There is mild aortic valve sclerosis. 4. Mild mitral annular calcification present. 5. Mild mitral regurgitation is present. 6. Mild tricuspid regurgitation present. 7. There is no evidence of pulmonary hypertension. 8. The right ventricular systolic pressure, as measured by Doppler, is {RVSP}. OCEANOGRAPHER ASSISTANT: Octavia Franco RDCS
[2016-09-18 15:27] VITALS: BP 177/73; RESP 28; TEMP 98
[2016-09-18 16:21] VITALS: PULSE 98
[2016-09-18 16:34] LABS: Glucose,Whole Blood 135 mg/dL (75-99)
[2016-09-18] MEDS ORDERED: INSULIN LISPRO (humaLOG) 300 UNIT/3 ML VIAL SQ SCH (17:30)
[2016-09-18 17:34] LABS: ABG Base Excess 10.6 mmol/L; ABG HCO3 38 mmol/L (21-25); ABG PCO2 98 mmHg (35-45); ABG PH 7.22 (7.35-7.45); ABG PO2 64 mmHg (83-108); ABG TCO2 41 mmol/L (19-24)
[2016-09-18] MEDS ORDERED: MORPHINE SULFATE 100 MG in SODIUM CHLORIDE 0.9% 100 ML IV SCH (17:45)
[2016-09-18] MEDS ORDERED: LORazepam 2 MG/ML SYRINGE IV PRN (17:47)
[2016-09-18] MEDS ORDERED: BUDESONIDE 0.5 MG/2 ML NEBU INHALATION SCH (20:00)
[2016-09-18] MEDS ORDERED: LINEZOLID 600 MG in DEXTROSE/WATER 1 300ML.BAG IVPB SCH (21:00)
[2016-09-18] MEDS ORDERED: ATORVASTATIN 80 MG TAB PO SCH (21:00)
[2016-09-18] MEDS ORDERED: HEPARIN SODIUM,PORCINE 5,000 UNIT/ML 1 ML VIAL SQ SCH (21:00)
[2016-09-19] MEDS ORDERED: amLODIPine 5 MG TAB PO SCH (09:00)
[2016-09-19] MEDS ORDERED: ASPIRIN 325 MG TAB PO SCH (09:00)
--- NOTE | 2016-10-11 14:17 | P.DS ---
Providers Date of admission: 09/17/16 15:56 Expected date of discharge: 10/11/16 Attending physician: Brandy Bliss Primary care physician: Brandy Bliss [facility] Course: This is a 80-year-old gentleman with very complex past medical history noted below who presented to the hospital with acute mental status change and was found to have acute hypoxic and hypercapnic respiratory failure with acute respiratory acidosis. Patient was known to be DNR/DNI. He was managed with bronchodilators, IV steroids, IV diuresis, and BiPAP machine. His clinical condition continued to deteriorate. Eventually, his family members gathered and met with the nursing home admissions director and decided to pursue comfort measures. Patient was placed on comfort and eventually a few hours later. Please refer to the nursing staff documentation for exact time/dates of . Below is a list of his medical problems: 1. Acute hypoxic and hypercapnic respiratory failure 2. Acute COPD exacerbation 3. Possible acute heart failure exacerbation awaiting echocardiogram report 4. Right lower extremity pressure ulcer with culture growing presumptive MRSA currently finishing oral course of antibiotic with linezolid 5. Bilateral lower extremity amputation 6. Severe peripheral vascular occlusive disease 7. Chronic kidney disease stage IIIa 8. Essential hypertension 9. Mixed hyperlipidemia Patient Condition at Discharge: Stable Plan - Discharge Summary Discharge Medication List Atorvastatin [Lipitor] 40 mg PO HS 09/13/14 [History] Insulin NPH Hum/Reg Insulin Hm [NovoLIN 70-30 100 UNIT/ML VIAL] 25 unit SQ AC- BRKFST 09/13/14 [History] Budesonide [Pulmicort] 0.5 mg INHALATION RT-BID 07/28/15 [History] Vitamin B Complex 1 cap PO DAILY 07/28/15 [History] amLODIPine BESYLATE [Norvasc] 5 mg PO DAILY 07/28/15 [History] Albuterol Inhaler [Ventolin Hfa Inhaler] 2 puff INHALATION RT-Q6H PRN 09/01/16 [ History] Aspirin EC [Ecotrin Low Dose] 81 mg PO DAILY 09/01/16 [History] Omeprazole [PriLOSEC] 40 mg PO DAILY 09/01/16 [History] Metoprolol Succinate [Toprol XL] 50 mg PO DAILY 09/02/16 [History] Insulin NPH Hum/Reg Insulin Hm [NovoLIN 70-30 100 UNIT/ML VIAL] 10 units SQ HS # 0 09/07/16 [Rx] Ipratropium-Albuterol Nebulize [Duoneb 0.5 mg-3 mg/3 ml Soln] 3 ml INHALATION RT -Q4H PRN #0 ampul.neb 09/07/16 [Rx] Linezolid 600 mg PO BID #28 tablet 09/07/16 [Rx] predniSONE 40 mg PO DAILY 5 Days 09/07/16 [Rx] INSULIN LISPRO (humaLOG) [humaLOG (formulary)] 2 unit SQ ACHS 09/17/16 [History] Prostat Awc 1 tab PO BID 09/17/16 [History] Tuberculin Ppd (Skin Test) [Tubersol] 0.1 ml SQ Q7D 09/17/16 [History] guaiFENesin [Mucinex] 600 mg PO BID 09/17/16 [History] Follow up Appointment(s)/Referral(s): Brandy Bliss MD [Primary Care Provider] - 1-2 days Discharge Disposition: - Preliminary Cause of Preliminary Cause of : Acute hypoxic and hypercapnic respiratory failure
== END 2016-09-18 20:15 | disposition expired | DRG 189 ==
LOC: EC 10:36 → 6SEL 15:56
PROVIDERS: ADMIT Internal Medicine; ATTEND Internal Medicine
PROC: 5A09457 Assistance with Respiratory Ventilation, 24-96 Consecutive Hours, Continuous Positive Airway Pressure (ICD-10-PCS; principal; 2016-09-17)
DX: J96.01 Acute respiratory failure with hypoxia (principal); J44.1 Chronic obstructive pulmonary disease with (acute) exacerbation; I13.0 Hypertensive heart and chronic kidney disease with heart failure and stage 1 through stage 4 chronic kidney disease, or unspecified chronic kidney disease; E11.22 Type 2 diabetes mellitus with diabetic chronic kidney disease; I50.9 Heart failure, unspecified; E11.51 Type 2 diabetes mellitus with diabetic peripheral angiopathy without gangrene; J96.02 Acute respiratory failure with hypercapnia; N18.3 Chronic kidney disease, stage 3 (moderate); E78.2 Mixed hyperlipidemia; G47.30 Sleep apnea, unspecified; H35.30 Unspecified macular degeneration; H54.41 Blindness, right eye, normal vision left eye; I25.10 Atherosclerotic heart disease of native coronary artery without angina pectoris; K21.9 Gastro-esophageal reflux disease without esophagitis; M19.041 Primary osteoarthritis, right hand; M19.042 Primary osteoarthritis, left hand; L89.899 Pressure ulcer of other site, unspecified stage; Z89.611 Acquired absence of right leg above knee; Z89.612 Acquired absence of left leg above knee; Z99.81 Dependence on supplemental oxygen; Z87.891 Personal history of nicotine dependence; Z86.14 Personal history of Methicillin resistant Staphylococcus aureus infection; Z66 Do not resuscitate; Z79.4 Long term (current) use of insulin; Z79.82 Long term (current) use of aspirin; Z79.899 Other long term (current) drug therapy; Z82.49 Family history of ischemic heart disease and other diseases of the circulatory system
CPT/HCPCS: 36415; 36600; 71010; 80053; 82550; 82553; 82805; 83036; 83735; 83880; 84484; 85025; 85610; 85730; 87040; 93005; 93306; 94640; 94660; 96365; 96375; 99291